=== PATIENT | female | born 1955 | race Caucasian/White ===

== ENCOUNTER 2020-05-19 19:32 | Emergency (ER) | payer OTHER ==
[~2020-05-19] VITALS: Ht 147.3 cm; Wt 90.7 kg
[~2020-05-19 19:32] MED LIST: CIPROFLOXIN HC2.5 M1 OPHTHALMIC; KEFLEX500 MG PO; LEVOTHYROXINE0.05 MG PO; LIPITOR 20 MG T20 M1 PO; NORTRIPTYLINE H50 MG PO; ZOLOFT50 MG PO
[2020-05-19] MEDS ORDERED: NORCO 5-325 TA1 EAC2 PO (21:00)
[2020-05-19] MEDS ORDERED: CRUTCHES MISCELL (21:00)
[2020-05-19] MEDS ORDERED: IBUPROFEN 800800 M1 PO (21:00)
[2020-05-19 21:23] VITALS: BP 133/67
== END 2020-05-19 21:24 | disposition home or self-care (01) ==
LOC: M.ERS 19:32
DX: S82.64XA Nondisplaced fracture of lateral malleolus of right fibula, initial encounter for closed fracture (principal); E78.00 Pure hypercholesterolemia, unspecified; Z90.710 Acquired absence of both cervix and uterus; W22.8XXA Striking against or struck by other objects, initial encounter; Y93.89 Activity, other specified; Y92.89 Other specified places as the place of occurrence of the external cause; Y99.8 Other external cause status